=== PATIENT | male | born 1965 | race Caucasian/White ===

== ENCOUNTER 2024-01-22 19:09 | Observation (INO) ==
--- NOTE | 2024-01-22 19:23 | Emergency Department Note ---
Impression & Plan Weakness, Chronic alcohol use, Metabolic acidosis ED Provider Note NAME: MEIR FIGUEROA AGE: 58 SEX: M : 1965 ARRIVES VIA: Ambulance INFORMANT: Patient, EMS ED PROVIDER(S): Manpreet Carreno DO CHIEF COMPLAINT: Weakness HPI: The patient is a 58-year-old male who presented to the emergency department for weakness. The patient states that he has had ongoing and worsening weakness over the course the last 3 to 4 days. The patient denies having any trauma. He denies any headache or chest pain. He does have a history of chronic alcohol use and drinks approximately 12 beers a day. The patient denies having any dark or tarry stools. The patient arrived via ambulance. He was found to be tachycardic by the EMS personnel. ROS: See above HPI for pertinent positives & negatives. A total of 10 systems reviewed and were otherwise negative. PAST MEDICAL HISTORY: See Below PAST SURGICAL HISTORY: See Below FAMILY HISTORY: See Below SOCIAL HISTORY: See Below HOME MEDICATIONS: See Below ALLERGIES: See Below VITALS: See Below PHYSICAL EXAMINATION: GENERAL: Patient is awake alert in no acute distress patient is resting comfortably and showing no signs of anxiety EYES: The conjunctivae are clear. The pupils are round and reactive. EARS, NOSE, MOUTH AND THROAT: The nose is without any evidence of any deformity. NECK: The neck is nontender and supple. RESPIRATORY: Normal respiratory effort is noted there is no evidence of wheezing rhonchi or rales CARDIOVASCULAR: Tachycardic and regular heart sounds were noted to auscultation. There is no definite murmur. GASTROINTESTINAL: The abdomen is soft. Abdomen is nontender. MUSCULOSKELETAL/EXTREMITIES: There is no evidence of gross deformity full range of motion is noted in the hips and shoulders. SKIN: There is no obvious evidence of any rash. There are no petechiae, pallor or cyanosis noted. NEUROLOGIC: Patient is awake alert and oriented x3 strength is symmetric patellar reflexes are diminished bilaterally. MEDICAL DECISION MAKING: The patient is a 58-year-old male who presented to the emergency department for an evaluation of generalized weakness. The patient has a history of alcohol abuse. He was found to have decreased reflexes bilaterally. I do not think this sounds like an ascending paralysis such as Guillain-Ahuja but given the patient's alcohol use it could be related to that. I discussed the patient's laboratory and radiographic studies with him. He was treated with IV thiamine as well as IV antibiotics. I discussed his condition with the on-call [facility] hospitalist. They have agreed to evaluate the patient in the emergency department for further management and disposition. Triage Nursing notes reviewed. Prior medical records reviewed Vital Signs: reviewed and remarkable for no significant abnormalities Differential diagnosis: Infection, dehydration, metabolic abnormality, hypo/hyperglycemia, electrolyte disturbance, anemia, hypoxia, cardiac sources, intracerebral event, toxicologic, neurologic, as well as other pathologies. ER treatment provided: See below Diagnostics interpreted by me: ECG: EKG was obtained in the emergency department. My interpretation is sinus tachycardia at 110 bpm. There is no ectopy. There is no acute ST segment abnormalities noted. No previous tracing was available. Cardiac Monitoring: An order was placed for continuous cardiac monitoring. The monitor shows a rate of 103 bpm with sinus tachycardia. Laboratory studies: As stated above and show below. Imaging studies: See below. Radiographic imaging was reviewed by myself Consultation(s): Dr. Sawant was notified about the patient. He will evaluate the patient in the emergency department. Past Med/Surg History Problem List (Updated 01/22/24 @ 21:29 by Manpreet Carreno DO) Metabolic acidosis (Acute) Chronic alcohol use (Acute) Weakness (Acute) Medical History (Updated 01/22/24 @ 21:29 by Manpreet Carreno DO) Chronic alcohol abuse Social History Smoking Status: Never smoker Tobacco Type: Smokeless Tobacco (Dip or Chew) Preferred Language: Salvadorean Feels Safe at Home: Yes Allergies Allergies Allergy/AdvReac Type Severity Reaction Status Date / Time No Known Allergies Allergy Unverified 01/22/24 22:09 Home Meds Home Medications Medication Instructions Recorded Confirmed No Known Home Medications 01/22/24 01/22/24 Results & Data (ED) Vital Signs Vital Signs - 24 hr 01/22/24 19:04 01/22/24 19:17 01/22/24 19:18 Temperature 36.7 C Temperature Source Oral Pulse Rate 115 H 114 H Pulse Rate [Apical] Pulse Rhythm Regular Pulse Rhythm [Apical] Pulse Strength Normal Respiratory Rate 20 Respiratory Effort / Characteristics Non-Labored Spontaneous Respiratory Depth Normal Respiratory Pattern Regular Blood Pressure 117/87 Blood Pressure [Left Arm] Blood Pressure Mean 97 Blood Pressure Mean [Left Arm] Blood Pressure Position Lying Pulse Oximetry 97 97 Oxygen Delivery Method Room Air Room Air Sepsis Recent Fever Within 48 Hours No Sepsis New/Unexplained Change in Mental Status No Sepsis Action Taken by Nursing No Action Required 01/22/24 19:36 01/22/24 20:04 01/22/24 21:00 Temperature Temperature Source Pulse Rate Pulse Rate [Apical] 99 H 93 H Pulse Rhythm Pulse Rhythm [Apical] Pulse Strength Respiratory Rate 16 18 Respiratory Effort / Characteristics Non-Labored Respiratory Depth Normal Respiratory Pattern Regular Blood Pressure Blood Pressure [Left Arm] 99/74 L 102/63 Blood Pressure Mean Blood Pressure Mean [Left Arm] 82 76 Blood Pressure Position Pulse Oximetry 99 98 100 Oxygen Delivery Method Room Air Room Air Room Air Sepsis Recent Fever Within 48 Hours Sepsis New/Unexplained Change in Mental Status Sepsis Action Taken by Nursing 01/22/24 22:00 01/22/24 23:00 01/22/24 23:21 Temperature Temperature Source Pulse Rate 93 H Pulse Rate [Apical] 99 H 98 H Pulse Rhythm Pulse Rhythm [Apical] Regular Pulse Strength Respiratory Rate 18 20 Respiratory Effort / Characteristics Non-Labored Non-Labored Respiratory Depth Normal Respiratory Pattern Regular Regular Blood Pressure Blood Pressure [Left Arm] 139/89 100/75 Blood Pressure Mean Blood Pressure Mean [Left Arm] 105 83 Blood Pressure Position Pulse Oximetry 95 99 Oxygen Delivery Method Room Air Room Air Sepsis Recent Fever Within 48 Hours Sepsis New/Unexplained Change in Mental Status Sepsis Action Taken by Nursing 01/23/24 00:00 Temperature Temperature Source Pulse Rate Pulse Rate [Apical] 103 H Pulse Rhythm Pulse Rhythm [Apical] Regular Pulse Strength Respiratory Rate 18 Respiratory Effort / Characteristics Non-Labored Respiratory Depth Normal Respiratory Pattern Regular Blood Pressure Blood Pressure [Left Arm] 100/62 Blood Pressure Mean Blood Pressure Mean [Left Arm] 74 Blood Pressure Position Pulse Oximetry 100 Oxygen Delivery Method Room Air Sepsis Recent Fever Within 48 Hours Sepsis New/Unexplained Change in Mental Status Sepsis Action Taken by Skilled Nursing Medications Current Medication List: was personally reviewed by me Laboratory Data Attestation: I reviewed the patient's lab results. 01/22/24 19:19 01/22/24 19:19 Lab Results 01/22/24 01/22/24 01/22/24 Range/Units 19:19 19:31 21:08 WBC 14.20 H (4.8-10.8) K/ul RBC 4.78 (4.70-6.10) M/uL Hgb 15.1 (14.0-18.0) g/dl Hct 43.3 (42.0-52.0) % MCV 90.6 (80.0-100.0) fL MCH 31.6 (25.0-34.0) pg MCHC 34.9 (32.0-36.0) g/dL RDW Std Deviation 46.0 (36.4-46.3) fL RDW Coeff of Don 13.9 (11.5-14.5) % Plt Count 245 (130-400) K/uL MPV 11.8 (9.4-12.4) fL Immature Gran % (Auto) 0.6 % Neut % (Auto) 81.7 % Lymph % (Auto) 11.7 % Forrest % (Auto) 5.6 % Eos % (Auto) 0.3 % Baso % (Auto) 0.1 % Neut # (Auto) 11.60 H (1.40-6.50) K/uL Lymph # (Auto) 1.66 (1.20-3.40) K/uL Forrest # (Auto) 0.79 H (0.11-0.59) K/uL Eos # (Auto) 0.04 (0.00-0.50) K/uL Baso # (Auto) 0.02 (0.00-0.20) K/uL Immature Gran # (Auto) 0.09 (0.01-0.20) K/uL Absolute Nucleated RBC 0.04 (0.00-0.12) K/uL Nucleated RBC % (auto) 0.3 % PT 14.5 H (9.0-12.0) Seconds INR 1.4 H (0.9-1.1) APTT 27 (21-31) Seconds PTT Ratio 1.0 VBG pH 7.41 (7.36-7.41) VBG pCO2 34 L (38-50) mmHg VBG pO2 21 mmHg VBG HCO3 22 mmol/L VBG O2 Saturation < 60.0 % VBG Base Excess -2.4 mEq/L Sodium 130 L (136-145) mmol/L Potassium 3.4 L (3.5-5.1) mmol/L Chloride 94 L (98-107) mmol/L Carbon Dioxide 16 L (21-32) mmol/L Anion Gap 20 H (3-11) BUN 9 (6-23) mg/dl Creatinine 0.77 (0.6-1.4) mg/dl Est Cr Clr Drug Dosing 114.1 ml/min eGFR 105.07 BUN/Creatinine Ratio 11.7 (10-20) Glucose 154 H (70-99(Fasting)) mg/dl Osmolality 270 L (280-300) mOsm/kg Calcium 8.7 (8.6-10.3) mg/dl Magnesium 2.1 (1.7-2.4) mg/dl Total Bilirubin 1.9 H (0.2-1.0) mg/dl AST 60 H (13-39) U/L ALT 38 (7-52) U/L Alkaline Phosphatase 61 (34-104) U/L Total Creatine Kinase 33 (30-223) U/L Troponin I High Sens 9.2 (0-20) pg/ml C-Reactive Protein 5.03 H (0-0.5) mg/dl Total Protein 7.4 (6.0-8.3) gm/dl Albumin 3.6 (3.4-5.0) gm/dl Globulin 3.8 (2.5-4.0) gm/dl Albumin/Globulin Ratio 0.9 (0.9-2) Vitamin B12 (180-914) pg/ml Folate (>5.38) ng/ml Procalcitonin 0.50 (0-0.5) ng/ml TSH 4.174 (0.300-4.500) uIu/ml Urine Color Urine Appearance (Clear) Urine pH (4.5-7.5) Ur Specific Clayton (1.000-1.030) Urine Protein (Negative) Urine Glucose (UA) (Negative) Urine Ketones (Negative) Urine Blood (Negative) Urine Nitrite (Negative) Urine Bilirubin (Negative) Urine Urobilinogen (Negative) Ur Leukocyte Esterase (Negative) Urine WBC (Auto) (0-5) /hpf Urine RBC (Auto) (0-2) /hpf U Hyaline Cast (Auto) (0-2) /lpf U Epithel Cells (Auto) (0-2) /hpf Urine Bacteria (Auto) (None Seen) Hyaline Casts (None Presnt) /lpf Urine Osmolality (500-800) mOsm/kg Ur Random Sodium mmol/L Urine Opiates Screen (Neg) Ur Methadone, Qual (Neg) Urine Fentanyl Screen (Neg) Urine Barbiturates (Neg) Ur Phencyclidine (PCP) (Neg) U Amphetamin/Meth Scrn (Neg) MDMA (Ecstasy) Screen (Neg) U Benzodiazepines Scrn (Neg) Ur Cocaine Metabolite (Neg) U Marijuana (THC) Screen (Neg) Ethyl Alcohol mg/dL < 10.0 (<10.0) mg/dl Anaplasma Smear See Comment Babesia Smear See Comment Lyme Disease Screen (Negative) SARS-CoV-2 (PCR) NEGATIVE (Negative) Influenza Type A (PCR) Negative (Neg) Influenza Type B (PCR) Negative (Neg) RSV (RT-PCR) Negative (Neg) 01/22/24 01/22/24 Range/Units 22:23 23:24 WBC (4.8-10.8) K/ul RBC (4.70-6.10) M/uL Hgb (14.0-18.0) g/dl Hct (42.0-52.0) % MCV (80.0-100.0) fL MCH (25.0-34.0) pg MCHC (32.0-36.0) g/dL RDW Std Deviation (36.4-46.3) fL RDW Coeff of Don (11.5-14.5) % Plt Count (130-400) K/uL MPV (9.4-12.4) fL Immature Gran % (Auto) % Neut % (Auto) % Lymph % (Auto) % Forrest % (Auto) % Eos % (Auto) % Baso % (Auto) % Neut # (Auto) (1.40-6.50) K/uL Lymph # (Auto) (1.20-3.40) K/uL Forrest # (Auto) (0.11-0.59) K/uL Eos # (Auto) (0.00-0.50) K/uL Baso # (Auto) (0.00-0.20) K/uL Immature Gran # (Auto) (0.01-0.20) K/uL Absolute Nucleated RBC (0.00-0.12) K/uL Nucleated RBC % (auto) % PT (9.0-12.0) Seconds INR (0.9-1.1) APTT (21-31) Seconds PTT Ratio VBG pH (7.36-7.41) VBG pCO2 (38-50) mmHg VBG pO2 mmHg VBG HCO3 mmol/L VBG O2 Saturation % VBG Base Excess mEq/L Sodium (136-145) mmol/L Potassium (3.5-5.1) mmol/L Chloride (98-107) mmol/L Carbon Dioxide (21-32) mmol/L Anion Gap (3-11) BUN (6-23) mg/dl Creatinine (0.6-1.4) mg/dl Est Cr Clr Drug Dosing ml/min eGFR BUN/Creatinine Ratio (10-20) Glucose (70-99(Fasting)) mg/dl Osmolality (280-300) mOsm/kg Calcium (8.6-10.3) mg/dl Magnesium (1.7-2.4) mg/dl Total Bilirubin (0.2-1.0) mg/dl AST (13-39) U/L ALT (7-52) U/L Alkaline Phosphatase (34-104) U/L Total Creatine Kinase (30-223) U/L Troponin I High Sens (0-20) pg/ml C-Reactive Protein (0-0.5) mg/dl Total Protein (6.0-8.3) gm/dl Albumin (3.4-5.0) gm/dl Globulin (2.5-4.0) gm/dl Albumin/Globulin Ratio (0.9-2) Vitamin B12 1184 H (180-914) pg/ml Folate 4.92 L (>5.38) ng/ml Procalcitonin (0-0.5) ng/ml TSH (0.300-4.500) uIu/ml Urine Color Clinch Urine Appearance Clear (Clear) Urine pH 6.0 (4.5-7.5) Ur Specific Clayton 1.018 (1.000-1.030) Urine Protein Trace H (Negative) Urine Glucose (UA) Negative (Negative) Urine Ketones 1+ H (Negative) Urine Blood Negative (Negative) Urine Nitrite Positive A (Negative) Urine Bilirubin 1+ H (Negative) Urine Urobilinogen Positive H (Negative) Ur Leukocyte Esterase Trace H (Negative) Urine WBC (Auto) 0-5 (0-5) /hpf Urine RBC (Auto) 3-5 H (0-2) /hpf U Hyaline Cast (Auto) 6-10 H (0-2) /lpf U Epithel Cells (Auto) 0-2 (0-2) /hpf Urine Bacteria (Auto) None Seen (None Seen) Hyaline Casts Present A (None Presnt) /lpf Urine Osmolality 473 L (500-800) mOsm/kg Ur Random Sodium 22 mmol/L Urine Opiates Screen Neg (Neg) Ur Methadone, Qual Neg (Neg) Urine Fentanyl Screen Neg (Neg) Urine Barbiturates Neg (Neg) Ur Phencyclidine (PCP) Neg (Neg) U Amphetamin/Meth Scrn Neg (Neg) MDMA (Ecstasy) Screen Neg (Neg) U Benzodiazepines Scrn Neg (Neg) Ur Cocaine Metabolite Neg (Neg) U Marijuana (THC) Screen Pos H (Neg) Ethyl Alcohol mg/dL (<10.0) mg/dl Anaplasma Smear Babesia Smear Lyme Disease Screen Negative (Negative) SARS-CoV-2 (PCR) (Negative) Influenza Type A (PCR) (Neg) Influenza Type B (PCR) (Neg) RSV (RT-PCR) (Neg) Administered Medications Potassium Chloride/Sodium Chloride (Normal Saline W/20 Meq Kcl) 20 meq in 1,000 mls @ 100 mls/hr IV .Q10H CHRISTA Stop: 01/23/24 08:59 Last Admin: 01/22/24 23:33 Dose: 100 mls/hr Documented By: DIMITRI Discontinued Medications Sodium Chloride (Nss) 1,000 mls @ 999 mls/hr IV .Q1H1M ONE Stop: 01/22/24 20:18 Last Infusion: 01/22/24 20:54 Dose: Infused Documented By: Admin: 01/22/24 19:24 Dose: 999 mls/hr Documented By: DIMITRI Thiamine HCl 200 mg/ Sodium (Chloride) 52 mls @ 210 mls/hr IV NOW STA Stop: 01/22/24 19:32 Last Infusion: 01/22/24 20:54 Dose: Infused Documented By: Admin: 01/22/24 20:23 Dose: 210 mls/hr Documented By: DIMITRI Ceftriaxone Sodium (Rocephin) 2,000 mg in 50 mls @ 100 mls/hr IV NOW STA Stop: 01/22/24 21:19 Last Infusion: 01/22/24 21:28 Dose: Infused Documented By: Admin: 01/22/24 20:58 Dose: 100 mls/hr Documented By: DIMITRI Imaging Data Attestation: I personally reviewed and interpreted this imaging study as follows: My Impression: 1 view chest x-ray was obtained in the emergency department. My interpretation is possible left-sided infiltrate, no free air, final report below. CT the brain was obtained in the emergency department. My interpretation is no intracranial hemorrhage or mass effect, final report below. Radiologist's Impression: Chest X-Ray 01/22/24 19:17 Exam(s): XR CXR 1 VIEW EXAM: XR Chest, 1 View CLINICAL HISTORY: weakness. TECHNIQUE: Frontal view of the chest. COMPARISON: No relevant prior studies available. FINDINGS: Lungs: No infiltrate. No atelectasis. No CHF. Pleural space: No pleural effusion. No pneumothorax. Heart: Unremarkable. No cardiomegaly. Mediastinum: Unremarkable. Normal mediastinal contour. Bones/joints: Unremarkable. No acute fracture. Abdomen: Left upper quadrant surgical clips. IMPRESSION: No acute abnormality. Electronically signed by: Chintan Parra M.D. 01/22/24 23:[address] 01/22/24 19:18 Exam(s): CT HEAD Without Contrast EXAM: CT Head Without Intravenous Contrast CLINICAL HISTORY: Reason for exam: weakness. TECHNIQUE: Axial computed tomography images of the head/brain without intravenous contrast. CTDI is 38.49 mGy and DLP is 625.8 mGy-cm. Automated exposure control was utilized for the study. A dose lowering technique was utilized adhering to the principles of ALARA. COMPARISON: No relevant prior studies available. FINDINGS: Brain: Unremarkable. No hemorrhage. No significant white matter disease. No edema. Ventricles: Moderate ventriculomegaly. Bones/joints: Unremarkable. No acute fracture. Soft tissues: Unremarkable. Sinuses: Unremarkable as visualized. No acute sinusitis. Mastoid air cells: Unremarkable as visualized. No mastoid effusion. IMPRESSION: No evidence of acute intracranial pathology. Electronically signed by: Sindhu Harris MD 01/22/24 22:28 PM Discharge Plan Visit Data Chief Complaint: Weakness Stated Complaint: LEG WEAKNESS, UNABLE TO WALK ED Provider: Manpreet Carreno Discharge Problem: Weakness, Chronic alcohol use, Metabolic acidosis Patient Disposition: Being Evaluated by Hospitalist Forms Stand Alone Forms: My [facility] Prescriptions Prescriptions: No Action No Known Home Medications Referrals Referrals: PCP,NO [Primary Care Provider] -
[2024-01-22] MEDS: SODIUM CHLORIDE 0.9% 1,000 ML IV ONE (19:24)
[2024-01-22 19:51] LABS: Basophils # (auto) 0.02 K/uL (0.00-0.20); Basophils % (auto) 0.1 %; Eosinophils # (auto) 0.04 K/uL (0.00-0.50); Eosinophils % (auto) 0.3 %; Hematocrit (blood only) 43.3 % (42.0-52.0); Hemoglobin 15.1 g/dl (14.0-18.0); Immature Granulocytes # (auto) 0.09 K/uL (0.01-0.20); Immature Granulocytes % (auto) 0.6 %; Lymphocytes # (auto) 1.66 K/uL (1.20-3.40); Lymphocytes % (auto) 11.7 %; Mean Corpuscular Hemoglobin 31.6 pg (25.0-34.0); Mean Corpuscular Hgb Conc 34.9 g/dL (32.0-36.0); Mean Corpuscular Volume 90.6 fL (80.0-100.0); Mean Platelet Volume 11.8 fL (9.4-12.4); Monocytes # (auto) 0.79 K/uL (0.11-0.59); Monocytes % (auto) 5.6 %; Neutrophils % (auto) 81.7 %; Nucleated RBC # (auto) 0.04 K/uL (0.00-0.12); Nucleated RBC % (auto) 0.3 %; Platelet Count 245 K/uL (130-400); RDW Coefficient of Variation 13.9 % (11.5-14.5); Red Blood Count 4.78 M/uL (4.70-6.10)
[2024-01-22 20:06] LABS: Troponin I High Sensitivity 9.2 pg/ml (0-20)
[2024-01-22 20:07] LABS: Albumin Level 3.6 gm/dl (3.4-5.0); Bilirubin,Total 1.9 mg/dl (0.2-1.0); Calcium 8.7 mg/dl (8.6-10.3); Magnesium 2.1 mg/dl (1.7-2.4); Potassium 3.4 mmol/L (3.5-5.1)
[2024-01-22 20:12] LABS: Albumin Globulin Ratio 0.9 (0.9-2); BUN Creatinine Ratio 11.7 (10-20); Creatinine Clr Calc Pharmacy 114.1 ml/min; Globulin 3.8 gm/dl (2.5-4.0); INR 1.4 (0.9-1.1); Partial Thromboplastin Time 27 Seconds (21-31); Prothrombin Time 14.5 Seconds (9.0-12.0); Total Protein 7.4 gm/dl (6.0-8.3)
[2024-01-22 20:15] LABS: Thyroid Stimulating Hormone 4.174 uIu/ml (0.300-4.500)
[2024-01-22] MEDS: THIAMINE HCL 200 MG in SODIUM CHLORIDE 0.9% 50 ML IV STA (20:23)
[2024-01-22] MEDS: cefTRIAXone SODIUM 2,000 MG/50 ML BAG IV STA (20:58)
[2024-01-22 21:11] LABS: Influenza A virus by PCR Negative (Neg); Influenza B virus by PCR Negative (Neg); RSV by PCR Negative (Neg); SARS CoV2 RNA(COVID-19) Ceph NEGATIVE (Negative)
[2024-01-22 21:20] LABS: Base Excess VBG -2.4 mEq/L; HCO3 VBG 22 mmol/L; Oxygen Saturation VBG < 60.0 %; PCO2 VBG 34 mmHg (38-50); PO2 VBG 21 mmHg; pH VBG 7.41 (7.36-7.41)
--- NOTE | 2024-01-22 22:29 | CT Scan Report ---
Exam(s): CT HEAD Without Contrast EXAM: CT Head Without Intravenous Contrast CLINICAL HISTORY: Reason for exam: weakness. TECHNIQUE: Axial computed tomography images of the head/brain without intravenous contrast. CTDI is 38.49 mGy and DLP is 625.8 mGy-cm. Automated exposure control was utilized for the study. A dose lowering technique was utilized adhering to the principles of ALARA. COMPARISON: No relevant prior studies available. FINDINGS: Brain: Unremarkable. No hemorrhage. No significant white matter disease. No edema. Ventricles: Moderate ventriculomegaly. Bones/joints: Unremarkable. No acute fracture. Soft tissues: Unremarkable. Sinuses: Unremarkable as visualized. No acute sinusitis. Mastoid air cells: Unremarkable as visualized. No mastoid effusion. IMPRESSION: No evidence of acute intracranial pathology. Electronically signed by: Sindhu Harris MD 01/22/24 22:28 PM
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
[2024-01-22 22:56] LABS: Appearance Urine Clear (Clear); Bacteria Urine Automated None Seen (None Seen); Bilirubin Urine 1+ (Negative); Blood Urine Negative (Negative); Color Urine Orange; Epithelial Cell Urine Auto 0-2 /hpf (0-2); Glucose Urine UA Negative (Negative); Hyaline Casts Urine Present /lpf (None Presnt); Ketones Urine 1+ (Negative); Leukocyte Esterase Urine Trace (Negative); Nitrite Urine Positive (Negative); Protein Urine Trace (Negative); Specific Gravity Urine 1.018 (1.000-1.030); Urobilinogen Urine Positive (Negative); WBC Urine Automated 0-5 /hpf (0-5)
[2024-01-22] MEDS: NSS + 20MEQ KCL 20 MEQ/1,000 ML BAG IV SCH (23:33)
[2024-01-22 23:44] LABS: Amphetamines+Metham, Urine Neg (Neg); Barbiturates, Urine Neg (Neg); Benzodiazepine, Urine Neg (Neg); Cocaine, Urine Neg (Neg); Fentanyl, Urine Neg (Neg); MDMA (Ecstacy), Urine Neg (Neg); Marijuana, Urine Pos (Neg); Methadone, Urine Neg (Neg); Opiate, Urine Neg (Neg); Phencyclidine, Urine Neg (Neg)
--- NOTE | 2024-01-22 23:47 | XRay Report ---
Exam(s): XR CXR 1 VIEW EXAM: XR Chest, 1 View CLINICAL HISTORY: weakness. TECHNIQUE: Frontal view of the chest. COMPARISON: No relevant prior studies available. FINDINGS: Lungs: No infiltrate. No atelectasis. No CHF. Pleural space: No pleural effusion. No pneumothorax. Heart: Unremarkable. No cardiomegaly. Mediastinum: Unremarkable. Normal mediastinal contour. Bones/joints: Unremarkable. No acute fracture. Abdomen: Left upper quadrant surgical clips. IMPRESSION: No acute abnormality. Electronically signed by: Chintan Parra M.D. 01/22/24 23:46 PM
[2024-01-23 00:26] LABS: Folate (Folic Acid),Ser orPlas 4.92 ng/ml (>5.38)
[2024-01-23] MEDS ORDERED: GLUCOSE 10 TAB/TUBE PO PRN (01:22)
[2024-01-23] MEDS ORDERED: CARBOHYDRATES FOR HYPOGLYCEMIA PO PRN (01:22)
[2024-01-23] MEDS ORDERED: GLUCOSE 40% GEL 15 GM TUBE PO PRN (01:22)
[2024-01-23] MEDS ORDERED: ONDANSETRON INJ 2 MG/ML 2 ML VIAL IV PRN (01:22)
[2024-01-23] MEDS ORDERED: LORazepam 2 MG/1 ML VIAL IV PRN ×3 (01:22)
[2024-01-23] MEDS ORDERED: DEXTROSE 50% 50 ML SYRINGE IV PRN (01:22)
[2024-01-23] MEDS ORDERED: Ativan IV Alcohol Withdrawal--Active Protocol IV PRN (01:22)
[2024-01-23] MEDS ORDERED: GLUCAGON FOR INJ 1 MG VIAL SQ PRN (01:22)
--- NOTE | 2024-01-23 02:57 | XRay Report ---
EXAM: XR KUB pre MRI CLINICAL HISTORY: INPATIENT TECHNIQUE: X-ray images of the abdomen were obtained in supine positions (KUB). COMPARISON: No prior studies are available for comparison. FINDINGS: Metallic clips and densities are projecting over the left hypochondrium could represent prior intervention, is correlated with a history. Oval radio-opaque density measures about 1.5x 1 cm in diameter seen projecting over the region of gall bladder suggesting gall bladder stone for ultrasound correlation. Gas Pattern: Gas pattern within the abdomen is normal. No evidence of bowel obstruction or distention. Soft Tissues: Soft tissues of the abdomen appear normal without evidence of masses or calcifications. The liver, spleen, and kidneys are of normal size and position. Mild degenerative changes involving the spine with possible facet joint arthropathy IMPRESSION: Oval Radiopaque density is seen protecting over the shadow of the gall bladder for better assessment with ultrasound. Electronically signed by Cheri Ktahleen 01-23-2024 02:57 AM
[2024-01-23 06:42] LABS: Basophils # (auto) 0.04 K/uL (0.00-0.20); Basophils % (auto) 0.4 %; Eosinophils # (auto) 0.02 K/uL (0.00-0.50); Eosinophils % (auto) 0.2 %; Hematocrit (blood only) 35.2 % (42.0-52.0); Hemoglobin 12.5 g/dl (14.0-18.0); Immature Granulocytes # (auto) 0.07 K/uL (0.01-0.20); Immature Granulocytes % (auto) 0.6 %; Lymphocytes # (auto) 2.94 K/uL (1.20-3.40); Lymphocytes % (auto) 26.6 %; Mean Corpuscular Hemoglobin 31.6 pg (25.0-34.0); Mean Corpuscular Hgb Conc 35.5 g/dL (32.0-36.0); Mean Corpuscular Volume 89.1 fL (80.0-100.0); Mean Platelet Volume 11.6 fL (9.4-12.4); Monocytes # (auto) 0.98 K/uL (0.11-0.59); Monocytes % (auto) 8.9 %; Neutrophils % (auto) 63.3 %; Nucleated RBC # (auto) 0.02 K/uL (0.00-0.12); Nucleated RBC % (auto) 0.2 %; Platelet Count 207 K/uL (130-400); RDW Standard Deviation 45.8 fL (36.4-46.3); Red Blood Count 3.95 M/uL (4.70-6.10); White Blood Count 11.05 K/ul (4.8-10.8)
[2024-01-23 07:15] LABS: Albumin Globulin Ratio 0.9 (0.9-2); BUN Creatinine Ratio 16.4 (10-20); Bilirubin,Total 1.2 mg/dl (0.2-1.0); Calcium 8.3 mg/dl (8.6-10.3); Creatinine Clr Calc Pharmacy 131.1 ml/min; Globulin 3.3 gm/dl (2.5-4.0); Potassium 3.3 mmol/L (3.5-5.1); Total Protein 6.3 gm/dl (6.0-8.3)
[2024-01-23 07:43] LABS: Estimated Average Glucose 117 mg/dl; Hemoglobin A1C 5.7 % (4.5-5.6)
[2024-01-23] MEDS ORDERED: POTASSIUM CHLORIDE / WTR 10 MEQ/100 ML PLCT IV ONE (07:43)
[2024-01-23] MEDS: INSULIN ASPART PER UNIT CHARGE SC SCH (08:50)
[2024-01-23] MEDS: POTASSIUM CHLORIDE 10 MEQ TABCR PO ONE (09:00)
[2024-01-23] MEDS: HEPARIN SOD 5,000 UNIT/0.5 ML VIAL SQ SCH (09:01)
[2024-01-23] MEDS: FOLIC ACID 1 MG TAB PO SCH (09:01)
[2024-01-23] MEDS: THIAMINE HCL 100 MG TAB PO SCH (09:01)
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
--- NOTE | 2024-01-23 10:37 | Hospitalist Progress Note ---
Date of Service January 23, 2024 Assessment & Plan (1) Weakness of both lower extremities: Plan: Neurology consult appreciated con't treatment of possible underlying metabolic abnormalities prior to considering GB and getting lumbar puncture -Tickborne studies: Negative for Lyme disease, anaplasmosis and babesiosis -IVF, electrolyte repletion -folic acid, thiamine -PT/OT evaluation (2) Abnormal liver enzymes: (3) Chronic alcohol abuse: Plan: Alcohol level is less than 10, with patient reporting drinking [address] on AWSS protocol with IV Ativan Received thiamine 200 mg IV and folate 1 mg IV in the ED Place on thiamine 100 mg p.o. daily and folate 1 mg p.o. daily (4) Diabetes mellitus: Plan: -RISS (5) H/O left nephrectomy: (6) History of splenectomy: (7) Metabolic acidosis: Plan: status post 1 L normal saline bolus from the ED Place on NSS + KCl 20 mEq at 100 mL/h x 1 L Admission and Anticipated Discharge Date Admission Date: January 22, 2024 Subjective No events overnight, pt resting comfortably in bed Review of Systems Review of Systems: CONST: Negative for fever, body aches and chills. HENT: Negative for neck pain/stiffness, headache, congestion, sore throat, swelling. EYES: Negative for discharge/pain or vision changes. RESP: Negative for cough/hemoptysis and shortness of breath. CV: Negative chest pain, difficulty breathing, palpitations. ABD: Negative pain, nausea, vomiting. : Negative increase frequency, dysuria, blood in urine or stool. MUSC: Negative for muscle aches, edema. SKIN: Negative rash, lesions/sores. NEURO: Negative headache, dizziness, weakness. Physical Exam Physical Exam: GENERAL APPEARANCE NAD, activity normal for age, well developed/ well nourished, no cyanosis, pallor, or diaphoresis. EYES lids/conjunctiva normal. EARS/NOSE/THROAT Mucous membranes moist, nares normal, lips/teeth normal uvula midline without oral pharyngeal erythema, exudate or swelling TMs normal bilaterally. No lymphangitis/lymphedema. HEAD/NECK normocephalic atraumatic, no facial trauma, neck is supple. RESPIRATORY respiratory effort normal, speaks in full sentences, no tripod position, no accessory muscle use. Lungs clear to auscultation without rhonchi, wheezes, rales CARDIAC Regular rate and rhythm, no edema. ABDOMINAL Soft, ND/NT. No evidence of fluid wave. No pulsatile masses on exam, rebound tenderness, Rankin sign or pain over Mcburney's point. MUSCLES/EXTREMITIES No abnormal range of motion, no swelling. SKIN Warm, pink and dry. No rashes, dermatoses, petechiae or lesions. NEUROLOGICAL Speech is clear and appropriate. Normal level of consciousness. Gait and coordination are normal. 5/5 strength in all extremities. PSYCH Normal mood and affect. Judgement/competence is appropriate Results & Data Results & Data Vital Signs (Past 12 Hours) Vital Signs Temp Pulse Pulse Resp BP BP Pulse Ox 01/23/24 08:02 36.5 C 78 20 112/73 100 01/23/24 02:51 36.8 C 88 18 113/77 99 01/23/24 01:28 36.7 C 92 H 16 115/75 99 01/23/24 01:00 36.6 C 102 H 18 104/68 95 01/23/24 00:00 103 H 18 100/62 100 01/22/24 23:21 93 H 01/22/24 23:00 98 H 20 100/75 99 O2 Del Method 01/23/24 08:02 Room Air 01/23/24 02:51 Room Air 01/23/24 01:28 Room Air 01/23/24 01:00 Room Air 01/23/24 00:00 Room Air 01/22/24 23:21 01/22/24 23:00 Room Air PG Care Time/CCT Total # of Minutes Spent Total Time Spent with Patient: Total time spent is greater than 50% in coordination of care (as documented) at patient's floor/unit and/or counseling patient: Coding Level of Care Code 47153 SUB INP/OBS CARE 2/35MIN Diagnoses Weakness of both lower extremities R29.898 Abnormal liver enzymes R74.8 Chronic alcohol abuse F10.10 Diabetes mellitus E11.9 H/O left nephrectomy Z90.5 History of splenectomy Z90.81 Metabolic acidosis E87.20
[2024-01-24 06:49] LABS: Basophils # (auto) 0.05 K/uL (0.00-0.20); Basophils % (auto) 0.5 %; Eosinophils # (auto) 0.03 K/uL (0.00-0.50); Eosinophils % (auto) 0.3 %; Hematocrit (blood only) 34.5 % (42.0-52.0); Hemoglobin 12.3 g/dl (14.0-18.0); Immature Granulocytes # (auto) 0.05 K/uL (0.01-0.20); Immature Granulocytes % (auto) 0.5 %; Lymphocytes # (auto) 2.65 K/uL (1.20-3.40); Lymphocytes % (auto) 27.2 %; Mean Corpuscular Hemoglobin 31.9 pg (25.0-34.0); Mean Corpuscular Hgb Conc 35.7 g/dL (32.0-36.0); Mean Corpuscular Volume 89.4 fL (80.0-100.0); Mean Platelet Volume 11.5 fL (9.4-12.4); Monocytes % (auto) 8.2 %; Neutrophils # (auto) 6.17 K/uL (1.40-6.50); Neutrophils % (auto) 63.3 %; Nucleated RBC # (auto) 0.02 K/uL (0.00-0.12); Nucleated RBC % (auto) 0.2 %; Platelet Count 218 K/uL (130-400); RDW Coefficient of Variation 14.1 % (11.5-14.5); RDW Standard Deviation 46.1 fL (36.4-46.3); Red Blood Count 3.86 M/uL (4.70-6.10); White Blood Count 9.75 K/ul (4.8-10.8)
[2024-01-24 07:10] LABS: Albumin Level 2.9 gm/dl (3.4-5.0); Bilirubin,Total 1.2 mg/dl (0.2-1.0); Calcium 8.1 mg/dl (8.6-10.3); Creatinine Clr Calc Pharmacy 127.3 ml/min; Magnesium 1.9 mg/dl (1.7-2.4); Potassium 3.5 mmol/L (3.5-5.1); Total Protein 5.9 gm/dl (6.0-8.3)
--- NOTE | 2024-01-24 09:27 | Neurology Progress Note ---
Date of Service January 24, 2024 Assessment & Plan (1) Weakness of both lower extremities: (2) Tremor: (3) Myalgia: (4) Chronic alcohol abuse: Plan This patient came in with syncope and lower extremity weakness. He was noted to have orthostasis. On neurologic examination currently, he has no focal weakness (individual muscles have excellent strength). The patient denies low back pain, but does have myalgias in proximal muscles particularly the thigh. I cannot exclude an underlying myopathy (a normal CK 33 on 01/21 -does not exclude myopathy) The patient is a heavy alcohol user over long period of time. He does not have any obvious withdrawal symptoms this morning. The patient does have an action tremor which could be due to multiple etiologies. Patient has no resting tremor, stiffness, slowness, or Parkinson gait (therefore no evidence of Parkinson's disease). Overall, his clinical picture is not consistent with an acute inflammatory polyneuropathy (such as Guillain-Ahuja syndrome). Recommendations: 1. Replace folate, as you are doing 2. Continue physical and Occupational Therapy 3. Consider aldolase (for myopathy), ESR and repeat CRP. Also could consider LISA profile 12 4. If the patient continues to have myalgia and weakness and EMG and nerve conduction study of the lower extremities (or 1 arm and 1 leg) could be scheduled as an outpatient. 5. I see no need for additional neurologic testing or treatment changes otherwise. I would consider treatment of the tremor as an outpatient. 6. This patient needs a PCP to follow him. Overall, I spent a total of 50 minutes with this case including review of records, direct evaluation the patient at bedside, report generation, and discussion of the case with patient and RN at bedside, occupational therapist, and Dr. Gambino, including differential diagnosis and treatment options Admission and Anticipated Discharge Date Admission Date: January 22, 2024 Subjective Patient feels that his legs were only weak when he came into the hospital. Prior to coming in the hospital he did not have leg weakness. Nursing suggested the patient has had some fluctuating weakness with his legs and fluctuating walking problems. He is able to move his legs and and walk better today but he has some achy soreness in his anterior thighs bilaterally. There is a little bit of soreness in his proximal arm muscles and calves but not as bad as the thighs. Patient was orthostatic upon admission and had some relatively mild electrolyte abnormalities. The white count was elevated but then improved and he has a mild anemia, very mild decreased sodium, hypocalcemia, and mildly elevated AST and total bili. B12 was normal but folate was decreased. TSH was borderline normal at 4.1. None of these abnormalities should make his legs "weak". A CRP was 5.0, but he has had no fever or signs of urinary tract (or other) infection. Chest x-ray was unremarkable. Results & Data Vital Signs (Past 12 Hours) Vital Signs Temp Pulse Pulse Resp BP Pulse Ox O2 Del Method 01/24/24 08:19 37.1 C 77 18 112/75 100 Room Air 01/24/24 05:42 71 01/24/24 04:00 36.7 C 83 18 113/77 98 Room Air 01/24/24 00:33 36.8 C 82 18 113/73 98 Room Air 01/23/24 21:47 96 H Exam (Neuro) Physical Exam: He is awake and alert. Speech is without aphasia or dysarthria. Mood is reasonable and affect is appropriate. He is pleasant and cooperative. Extraocular eye muscles are intact without nystagmus. Pupils are 4 mm bilaterally reactive to light. There is no facial droop and tongue is midline. There is good neck, sternocleidomastoid, and trapezius strength. Coordination is normal in the arms without obvious ataxia but there is action tremor bilaterally. There is good facility in the hands. Motor strength is 5/5 diffusely in the upper extremities both proximally and distally with good tone and no focal atrophy Motor strength is 5/5 diffusely in the lower extremities both proximally distally (there is no actual pathologic weakness). The thighs are tender to palpation anteriorly bilaterally and to a lesser degree the upper arms and calfs. Reflexes are 1/4 in the triceps tendons bilaterally, trace in the biceps bilaterally trace in the quadriceps tendons bilaterally and absent in the brachioradialis and Achilles tendons. Toes are downgoing to plantar stimulation bilaterally. Gait is narrow-based and reasonable in a straight line. He is a little hesitant with turns. Stance with eyes open is good. PG Care Time/CCT Total # of Minutes Spent Total Time Spent with Patient: Total time spent is greater than 50% in coordination of care (as documented) at patient's floor/unit and/or counseling patient: Coding Level of Care Code 56955 SUB INP/OBS CARE 3/50MIN Diagnoses Weakness of both lower extremities R29.898 Tremor R25.1 Myalgia M79.10 Chronic alcohol abuse F10.10 Time Spent (min) 50
--- NOTE | 2024-01-24 11:39 | Hospitalist Progress Note ---
Date of Service January 24, 2024 Assessment & Plan (1) Weakness of both lower extremities: Plan: Neurology consult appreciated -symptoms improving, con't treatment of possible underlying metabolic abnormalities prior to considering GB and getting lumbar puncture -Tickborne studies: Negative for Lyme disease, anaplasmosis and babesiosis -IVF, electrolyte repletion -folic acid, thiamine -PT/OT evaluation -esr, aldolase, CRP ordered (2) Abnormal liver enzymes: (3) Chronic alcohol abuse: Plan: Alcohol level is less than 10, with patient reporting drinking [address] on AWSS protocol with IV Ativan Received thiamine 200 mg IV and folate 1 mg IV in the ED Place on thiamine 100 mg p.o. daily and folate 1 mg p.o. daily (4) Diabetes mellitus: Plan: -RISS (5) H/O left nephrectomy: (6) History of splenectomy: (7) Metabolic acidosis: Plan: status post 1 L normal saline bolus from the ED Place on NSS + KCl 20 mEq at 100 mL/h x 1 L Admission and Anticipated Discharge Date Admission Date: January 22, 2024 Subjective Pt states he has improvement in symptoms this morning and feels his legs are stronger. Review of Systems Review of Systems: CONST: Negative for fever, body aches and chills. HENT: Negative for neck pain/stiffness, headache, congestion, sore throat, swelling. EYES: Negative for discharge/pain or vision changes. RESP: Negative for cough/hemoptysis and shortness of breath. CV: Negative chest pain, difficulty breathing, palpitations. ABD: Negative pain, nausea, vomiting. : Negative increase frequency, dysuria, blood in urine or stool. MUSC: Negative for muscle aches, edema. SKIN: Negative rash, lesions/sores. NEURO: Negative headache, dizziness, weakness. Physical Exam Physical Exam: GENERAL APPEARANCE NAD, activity normal for age, well developed/ well nourished, no cyanosis, pallor, or diaphoresis. EYES lids/conjunctiva normal. EARS/NOSE/THROAT Mucous membranes moist, nares normal, lips/teeth normal uvula midline without oral pharyngeal erythema, exudate or swelling TMs normal bilaterally. No lymphangitis/lymphedema. HEAD/NECK normocephalic atraumatic, no facial trauma, neck is supple. RESPIRATORY respiratory effort normal, speaks in full sentences, no tripod position, no accessory muscle use. Lungs clear to auscultation without rhonchi, wheezes, rales CARDIAC Regular rate and rhythm, no edema. ABDOMINAL Soft, ND/NT. No evidence of fluid wave. No pulsatile masses on exam, rebound tenderness, Rankin sign or pain over Mcburney's point. MUSCLES/EXTREMITIES No abnormal range of motion, no swelling. SKIN Warm, pink and dry. No rashes, dermatoses, petechiae or lesions. NEUROLOGICAL Speech is clear and appropriate. Normal level of consciousness. Gait and coordination are normal. 5/5 strength in all extremities. PSYCH Normal mood and affect. Judgement/competence is appropriate Results & Data Results & Data Vital Signs (Past 12 Hours) Vital Signs Temp Pulse Pulse Resp BP Pulse Ox O2 Del Method 01/24/24 08:19 37.1 C 77 18 112/75 100 Room Air 01/24/24 05:42 71 01/24/24 04:00 36.7 C 83 18 113/77 98 Room Air 01/24/24 00:33 36.8 C 82 18 113/73 98 Room Air PG Care Time/CCT Total # of Minutes Spent Total Time Spent with Patient: Total time spent is greater than 50% in coordination of care (as documented) at patient's floor/unit and/or counseling patient: Coding Level of Care Code 87728 SUB INP/OBS CARE 2/35MIN Diagnoses Weakness of both lower extremities R29.898 Abnormal liver enzymes R74.8 Chronic alcohol abuse F10.10 Diabetes mellitus E11.9 H/O left nephrectomy Z90.5 History of splenectomy Z90.81 Metabolic acidosis E87.20
[2024-01-24 12:11] LABS: C Reactive Protein 3.21 mg/dl (0-0.5)
[2024-01-25 06:32] LABS: Basophils # (auto) 0.05 K/uL (0.00-0.20); Basophils % (auto) 0.5 %; Eosinophils # (auto) 0.05 K/uL (0.00-0.50); Eosinophils % (auto) 0.5 %; Hematocrit (blood only) 33.8 % (42.0-52.0); Hemoglobin 11.6 g/dl (14.0-18.0); Immature Granulocytes # (auto) 0.06 K/uL (0.01-0.20); Immature Granulocytes % (auto) 0.6 %; Lymphocytes # (auto) 2.86 K/uL (1.20-3.40); Lymphocytes % (auto) 29.8 %; Mean Corpuscular Hemoglobin 31.8 pg (25.0-34.0); Mean Corpuscular Hgb Conc 34.3 g/dL (32.0-36.0); Mean Corpuscular Volume 92.6 fL (80.0-100.0); Mean Platelet Volume 11.6 fL (9.4-12.4); Monocytes # (auto) 0.83 K/uL (0.11-0.59); Monocytes % (auto) 8.7 %; Neutrophils # (auto) 5.74 K/uL (1.40-6.50); Neutrophils % (auto) 59.9 %; Platelet Count 226 K/uL (130-400); RDW Coefficient of Variation 13.2 % (11.5-14.5); RDW Standard Deviation 44.9 fL (36.4-46.3); Red Blood Count 3.65 M/uL (4.70-6.10); White Blood Count 9.59 K/ul (4.8-10.8)
[2024-01-25 06:45] LABS: BUN Creatinine Ratio 13.8 (10-20); Bilirubin,Total 1.2 mg/dl (0.2-1.0); Calcium 8.2 mg/dl (8.6-10.3); Creatinine Clr Calc Pharmacy 135.2 ml/min; Magnesium 1.7 mg/dl (1.7-2.4); Potassium 3.1 mmol/L (3.5-5.1)
[2024-01-25] MEDS ORDERED: POTASSIUM CHLORIDE / WTR 10 MEQ/100 ML PLCT IV SCH (08:15)
[2024-01-25] MEDS: POTASSIUM CHLORIDE 10 MEQ TABCR PO ONE (08:42)
--- NOTE | 2024-01-25 11:56 | Electrocardiogram Report ---
Test Reason : Blood Pressure : */* mmHG Vent. Rate : 110 BPM Atrial Rate : 110 BPM P-R Int : 146 ms QRS Dur : 76 ms QT Int : 342 ms P-R-T Axes : 12 -9 63 degrees QTcB Int : 462 ms Sinus tachycardia Low voltage QRS Cannot rule out Inferior infarct , age undetermined Cannot rule out Anterior infarct , age undetermined Abnormal ECG No previous ECGs available Confirmed by Shadi Pagan ([id number]) on 01/25/2024 11:56:13 AM Referred By: Confirmed By: Shadi Pagan
--- NOTE | 2024-01-25 12:14 | Discharge Summary ---
Discharge Summary Date of Service January 25, 2024 Principal Dx & Hospital Course #1 = Principal Diagnosis (1) Weakness of both lower extremities: Neurology consult appreciated -symptoms improving, con't treatment of possible underlying metabolic abnormali ties prior to considering GB and getting lumbar puncture -Tickborne studies: Negative for Lyme disease, anaplasmosis and babesiosis -IVF, electrolyte repletion -folic acid, thiamine -PT/OT evaluation -esr, aldolase, CRP ordered (2) Abnormal liver enzymes: (3) Chronic alcohol abuse: Alcohol level is less than 10, with patient reporting drinking [address] on AWSS protocol with IV Ativan Received thiamine 200 mg IV and folate 1 mg IV in the ED Place on thiamine 100 mg p.o. daily and folate 1 mg p.o. daily (4) Diabetes mellitus: -RISS (5) H/O left nephrectomy: (6) History of splenectomy: (7) Metabolic acidosis: status post 1 L normal saline bolus from the ED Place on NSS + KCl 20 mEq at 100 mL/h x 1 L Admission HPI Per Admitting Provider The patient is a 58-year-old male with a past medical history including chronic alcohol use, alcohol use disorder, diabetes mellitus, chronic marijuana use with last use several weeks ago. He reports drinking at least 12 beers daily, and presents as noted above with lower extremity weakness. Discharge Exam GENERAL APPEARANCE NAD, activity normal for age, well developed/ well nourished, no cyanosis, pallor, or diaphoresis. EYES lids/conjunctiva normal. EARS/NOSE/THROAT Mucous membranes moist, nares normal, lips/teeth normal uvula midline without oral pharyngeal erythema, exudate or swelling TMs normal bilaterally. No lymphangitis/lymphedema. HEAD/NECK normocephalic atraumatic, no facial trauma, neck is supple. RESPIRATORY respiratory effort normal, speaks in full sentences, no tripod position, no accessory muscle use. Lungs clear to auscultation without rhonchi, wheezes, rales CARDIAC Regular rate and rhythm, no edema. ABDOMINAL Soft, ND/NT. No evidence of fluid wave. No pulsatile masses on exam, rebound tenderness, Rankin sign or pain over Mcburney's point. MUSCLES/EXTREMITIES No abnormal range of motion, no swelling. SKIN Warm, pink and dry. No rashes, dermatoses, petechiae or lesions. NEUROLOGICAL Speech is clear and appropriate. Normal level of consciousness. Gait and coordination are normal. 5/5 strength in all extremities. PSYCH Normal mood and affect. Judgement/competence is appropriate Discharge Plan Discharge Items Patient Disposition: Home - Self-Care Reason For Visit: LE WEAKNESS,LETHARGIC, ALCOHOL WITHDRAWAL Discharge Diagnosis: lower extremity weakness, hypokalemia Activity: Resume your previous activity Non-emergency contact: Primary Care Provider Call non-emergency contact if: you have any medication questions and your symptoms worsen Follow-up/Referrals: PCP,NO [Primary Care Provider] - Diet: Regular Addtl Attending Provider Instructions: Follow up with PMD in 1 week. Pending Studies at Discharge: No Stand-Alone Forms: The Beer X-Change, Smoking Cessation Medications and DC Order Prescriptions: New thiamine HCl (vitamin B1) 100 mg Tablet 100 mg PO QAM Qty: 60 0RF folic acid 1 mg Tablet 1 mg PO QAM Qty: 60 0RF Discharge Orders: Discharge Order (Routine); Ordered 01/25/24 Ordered By: Jesus Manuel Gambino Admission Data Admit Date/Time: 01/22/24 22:54 Attending Provider: Jesus Manuel Gambino Admit Provider: Abram Mittal Primary Care Provider: PCP,NO Other Providers: Abram Mittal; Gautam Swan Hospital Stay Data Consultations 01/22/24 21:29 ED Decision to Admit Stat 01/23/24 07:38 Consult Neurology Routine Diagnostic Imagining Performed 01/22/24 19:18 CT head/brain wo con Stat Pending Results Patient Have Any Pending Studies at Discharge: No Discharge Instructions Given to Patient (Per Discharging Provider) Follow up with PMD in 1 week. Total Time Total Time Spent Total Time Spent (In Minutes): 50 Coding Level of Care Code 22111 INP/OBS DISCH >30 MIN Diagnoses Weakness of both lower extremities R29.898 Abnormal liver enzymes R74.8 Chronic alcohol abuse F10.10 Diabetes mellitus E11.9 H/O left nephrectomy Z90.5 History of splenectomy Z90.81 Metabolic acidosis E87.20
[2024-01-25 13:19] VITALS: BP 107/63; PULSE 74; RESP 18; TEMP 98.4; O2SAT 96
[2024-01-26 15:17] LABS: Marijuana Quant, GCMS Urine 220 ng/mL (<5)
[2024-01-27 17:32] LABS: Babesia microti DNA Not Detected (Not Detected)
== END 2024-01-25 14:25 | disposition home or self-care (01) | DRG 948 ==
LOC: ED 19:09 → INTOOBSV 22:54 → SUATTDRO 22:54 → 2S 22:54

== ENCOUNTER 2024-02-03 14:12 | Observation (INO) ==
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
--- NOTE | 2024-02-03 15:03 | XRay Report ---
XR chest 1V portable CLINICAL HISTORY: near syncope COMPARISON STUDY: Chest radiograph January 22, 2024. FINDINGS: No pneumothorax or pleural effusion is present. Left upper quadrant surgical clips are note d. A few additional metallic densities project over the left lower chest/upper abdomen. Cardiac size is normal. There is no consolidation to suggest pneumonia. A 6.3 cm left basilar mass-like density is present. There is an additional hazy left mid lung opacity and a left upper lobe nodular opacity. IMPRESSION: 1. No acute cardiopulmonary findings. 2. 6.3 cm left basilar mass-like density, a hazy left lower lung opacity and a left upper lobe nodule . These are indeterminate and a chest CT is recommended to exclude a neoplastic etiology. ACT 112: Positive. There are findings on this exam that require communication between the performing entity and the patient following Patient Test Result Information Act ([place] Act 112) guidelines. Electronically signed by: Kareem Del Rio M.D. 02/03/2024 3:00 PM
--- NOTE | 2024-02-03 15:03 | CT Scan Report ---
CT OF THE HEAD WITHOUT CONTRAST CLINICAL HISTORY: dizzy COMPARISON STUDY: Head CT January 22, 2024. CT DOSE: 1201.8 mGy.cm TECHNIQUE: Helical axial images of the head were obtained without IV contrast. Automated exposure con trol was utilized for the study. A dose lowering technique was utilized adhering to the principles o f ALARA. FINDINGS: No acute intracranial hemorrhage, midline shift or mass effect is present. The ventricular system is stable. Mild ventricular dilatation is likely due to atrophy. The basal cisterns are patent . No extra-axial collections are present. There are no findings to suggest acute dural sinus thrombos is or acute territorial infarct. IMPRESSION: No acute intracranial findings. No change in appearance of the brain. ACT 112: Negative or not required by law. Electronically signed by: Kareem Del Rio M.D. 02/03/2024 3:02 PM
[2024-02-03 15:04] LABS: Basophils # (auto) 0.04 K/uL (0.00-0.20); Basophils % (auto) 0.4 %; Eosinophils # (auto) 0.09 K/uL (0.00-0.50); Eosinophils % (auto) 0.9 %; Hematocrit (blood only) 30.6 % (42.0-52.0); Hemoglobin 10.5 g/dl (14.0-18.0); Immature Granulocytes # (auto) 0.06 K/uL (0.01-0.20); Immature Granulocytes % (auto) 0.6 %; Lymphocytes # (auto) 2.65 K/uL (1.20-3.40); Lymphocytes % (auto) 25.8 %; Mean Corpuscular Hemoglobin 32.1 pg (25.0-34.0); Mean Corpuscular Hgb Conc 34.3 g/dL (32.0-36.0); Mean Corpuscular Volume 93.6 fL (80.0-100.0); Mean Platelet Volume 10.9 fL (9.4-12.4); Monocytes # (auto) 0.62 K/uL (0.11-0.59); Neutrophils # (auto) 6.81 K/uL (1.40-6.50); Neutrophils % (auto) 66.3 %; Platelet Count 316 K/uL (130-400); RDW Coefficient of Variation 14.6 % (11.5-14.5); Red Blood Count 3.27 M/uL (4.70-6.10); White Blood Count 10.27 K/ul (4.8-10.8)
--- NOTE | 2024-02-03 15:09 | CT Scan Report ---
CT OF THE CERVICAL SPINE WITHOUT CONTRAST CLINICAL HISTORY: Neck pain. COMPARISON STUDY: No previous studies for comparison. TECHNIQUE: Helical axial images of the cervical spine were obtained without IV contrast. Sagittal a nd coronal reconstructions were viewed. Automated exposure control was utilized for the study. A do se lowering technique was utilized adhering to the principles of ALARA. FINDINGS: Alignment of the cervical spine is anatomic. Vertebral body heights are maintained. No acut e cervical spine fracture or subluxation is present. There is no prevertebral edema. Facet joints are intact. Moderate multilevel degenerative changes within the cervical spine are present. The central canal and neural foramen are suboptimally assessed given CT technique. Disc space narrowing and endp late changes are most pronounced at the C6-C7 level. A 2.4 cm lobulated pleural/pulmonary nodule with in the left upper lobe is partially imaged on this exam. This is noted on image 714 of 714. A low-att enuation 2.1 cm nodule inferior to the right thyroid lobe is present. IMPRESSION: 1. No acute cervical spine fracture or subluxation. 2. Moderate multilevel degenerative changes within the cervical spine. 3. Partially imaged 2.4 cm lobulated pleural/pulmonary nodule within the left upper lobe. This is ind eterminate and chest CT is recommended for further evaluation. ACT 112: Negative or not required by law. Electronically signed by: Kareem Del Rio M.D. 02/03/2024 3:06 PM
[2024-02-03 15:21] LABS: Base Excess VBG -2.4 mEq/L; HCO3 VBG 22 mmol/L; Oxygen Saturation VBG < 60.0 %; PCO2 VBG 34 mmHg (38-50); PO2 VBG 29 mmHg; pH VBG 7.41 (7.36-7.41)
[2024-02-03 15:21] LABS: Albumin Globulin Ratio 0.9 (0.9-2); Albumin Level 3.4 gm/dl (3.4-5.0); Creatinine Clr Calc Pharmacy 142.1 ml/min; Magnesium 2.2 mg/dl (1.7-2.4); Potassium 3.7 mmol/L (3.5-5.1); Total Protein 7.4 gm/dl (6.0-8.3)
[2024-02-03] MEDS: SODIUM CHLORIDE 0.9% 1,000 ML IV ONE (15:25)
[2024-02-03 15:26] LABS: Troponin I High Sensitivity 6.3 pg/ml (0-20)
[2024-02-03 15:29] LABS: INR 1.1 (0.9-1.1); Partial Thromboplastin Ratio 0.9; Partial Thromboplastin Time 25 Seconds (21-31); Prothrombin Time 12.2 Seconds (9.0-12.0)
[2024-02-03] MEDS: OPTIRAY 320 100ml IV ONE (15:32)
--- NOTE | 2024-02-03 16:22 | CT Scan Report ---
EXAM: CT Chest With Intravenous Contrast INDICATION: Abnormal chest x-ray. TECHNIQUE: Axial computed tomography images of the chest with intravenous contrast. Sagittal and coronal reformatted images were created and reviewed. This CT exam was performed using one or more of the following dose reduction techniques: automated exposure control, adjustment of the mA and/or kV according to patient size, and/or use of iterative reconstruction technique. CONTRAST: 90 ml of Optiray 320 was administered intravenously. COMPARISON: 01/22/2024 FINDINGS: Limitations: None. Lungs and pleural spaces: Multiple pleural-based soft tissue masses noted in the left hemithorax. Left apical nodule measures easuring 2.0 x 3.7 x 3.3 cm. Multiple confluent nodules posterior left face with a collection measuring up to 7.0 cm transverse by 3.0. No pleural effusion or pneumothorax. Heart: No abnormality noted. Thyroid: No abnormality noted. Bones/joints: Degenerative changes noted throughout the spine. No acute osseous abnormality seen. Soft tissues: Nodular opacity noted in the left lateral chest wall measuring approximately 2.9 x 1.8 cm. Vasculature: No abnormality noted. No thoracic aortic aneurysm. Lymph nodes: There is an enlarged pretracheal lymph node measuring 1.6 cm in short axis dimension. Liver: Normal size and contour. Hypodense typical of steatosis. No mass or ductal dilation. Spleen: Cm AP by 5.2 cm long. Splenectomy. Accessories splenic tissue noted in the left upper quadrant with a nodule measuring up to 2.6 cm and some along the diaphragm. Kidneys and ureters: Left nephrectomy. Visualized portion of the right kidney appears normal. Upper abdomen: There is left diaphragmatic thinning without defined hernia. IMPRESSION: 1. There are multiple pleural-based homogeneous soft tissue densities in the left hemithorax as well as in the splenectomy bed and the adjacent chest wall. Findings most concerning for splenosis. If there is no study to compare, recommend 3-month follow-up as pleural metastases are not completely excluded but thought less likely. 2. Enlarged precarinal lymph node also should be compared to prior or followed up in 3 months. ACT 112: Negative or not required by law. Electronically signed by Xiomara Rahman 02-03-2024 4:21 PM
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
[2024-02-03 21:31] LABS: Appearance Urine Clear (Clear); Bacteria Urine Automated None Seen (None Seen); Bilirubin Urine 1+ (Negative); Blood Urine Trace (Negative); Cast Urine Automated 0-2 /lpf (0-2); Color Urine Dark Yellow; Epithelial Cell Urine Auto 0-2 /hpf (0-2); Glucose Urine UA Negative (Negative); Ketones Urine 1+ (Negative); Leukocyte Esterase Urine Negative (Negative); Nitrite Urine Negative (Negative); Protein Urine Negative (Negative); RBC Urine Automated 0-2 /hpf (0-2); Specific Gravity Urine 1.042 (1.000-1.030); Urobilinogen Urine Positive (Negative); WBC Urine Automated 0-5 /hpf (0-5)
[2024-02-03] MEDS ORDERED: Ativan IV Alcohol Withdrawal--Active Protocol IV PRN (22:36)
[2024-02-03] MEDS ORDERED: LORazepam 2 MG/1 ML VIAL IV PRN ×3 (22:36)
[2024-02-03] MEDS: ENOXAPARIN INJ 40 MG/0.4 ML SYR SQ SCH (23:58)
--- NOTE | 2024-02-04 05:52 | Electrocardiogram Report ---
Test Reason : Blood Pressure : */* mmHG Vent. Rate : 104 BPM Atrial Rate : 104 BPM P-R Int : 162 ms QRS Dur : 76 ms QT Int : 338 ms P-R-T Axes : 59 -6 64 degrees QTcB Int : 444 ms Sinus tachycardia Otherwise normal ECG When compared with ECG of 22-Jan-2024 19:23, No significant change Confirmed by Quang Ponce ([id number]) on 02/04/2024 5:52:14 AM Referred By: Confirmed By: Quang Ponce
[2024-02-04 07:44] LABS: Basophils # (auto) 0.04 K/uL (0.00-0.20); Basophils % (auto) 0.4 %; Eosinophils % (auto) 0.9 %; Hematocrit (blood only) 25.9 % (42.0-52.0); Hemoglobin 8.7 g/dl (14.0-18.0); Immature Granulocytes # (auto) 0.05 K/uL (0.01-0.20); Immature Granulocytes % (auto) 0.5 %; Lymphocytes # (auto) 2.99 K/uL (1.20-3.40); Lymphocytes % (auto) 27.8 %; Mean Corpuscular Hemoglobin 31.5 pg (25.0-34.0); Mean Corpuscular Hgb Conc 33.6 g/dL (32.0-36.0); Mean Corpuscular Volume 93.8 fL (80.0-100.0); Mean Platelet Volume 10.8 fL (9.4-12.4); Monocytes # (auto) 0.62 K/uL (0.11-0.59); Monocytes % (auto) 5.8 %; Neutrophils # (auto) 6.97 K/uL (1.40-6.50); Neutrophils % (auto) 64.6 %; Platelet Count 286 K/uL (130-400); RDW Coefficient of Variation 14.6 % (11.5-14.5); RDW Standard Deviation 49.8 fL (36.4-46.3); Red Blood Count 2.76 M/uL (4.70-6.10); White Blood Count 10.77 K/ul (4.8-10.8)
[2024-02-04 07:55] LABS: BUN Creatinine Ratio 11.1 (10-20); Creatinine Clr Calc Pharmacy 151.1 ml/min
[2024-02-04] MEDS: THIAMINE HCL 100 MG TAB PO SCH (08:54)
[2024-02-04] MEDS: FOLIC ACID 1 MG TAB PO SCH (08:55)
[2024-02-04] MEDS: POTASSIUM CHLORIDE CRTAB 20 MEQ TABCR PO STA (11:03)
[2024-02-04 11:27] LABS: Ferritin 365.5 ng/ml (8-388)
--- NOTE | 2024-02-04 14:17 | Hospitalist Progress Note ---
Date of Service February 04, 2024 Assessment & Plan (1) Weakness: Plan: Reports ongoing weakness and dizziness when standing - feeling like his legs are going to buckle. Recent admission for similar. Head CT : no acute findings Progression/presentation is not consistent with GBS, patient does have robust strength at the bedside although he is with autonomic dysfunction and orthostatic hypotension. 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 Also with enlarged precarinal lymph node. This will require repeat 3-month imaging (3) Diabetes mellitus: Plan: Last A1c 5.7%, consistent with prediabetes. 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 If greater than 180 fasting add basal bolus SSI (4) Chronic alcohol abuse: Plan: Daily alcohol use Placed on at risk protocol with ativan - so far has not required Continue thiamine/folic acid supplementation Plan Disposition: continued inpatient stay, treating orthostatic hypotension DVT prophylaxis: Lovenox Admission and Anticipated Discharge Date Admission Date: February 03, 2024 Supervising Physician Co-Signing Physician Notes Attending Attestation - Chart reviewed, care plan d/w KAMLA Mason. I agree w/ the hernández components of her documentation with the following addition - ANEMIA hemoglobin today 8.7 was 15.1 earlier this month no overt bleeding at minimum recheck CBC am needs additional w/u for cause Allan Stevens MD Subjective Patient seen sitting in bed - reports when he is sitting he feels great, but when he moves/stands/walks he is so dizzy and weak. Had to crawl up his family members drive way last week. Denies vertigo feelings or that the room is spinning worked with therapy this morning orthostatic vital signs are positive drinks 12 beers a day, and has since he was 23, states it used to be more than that no recent changes to diet or medications, overall his appetite is poor Review of Systems Review of Systems: All systems reviewed & are unremarkable except as noted in Subjective Physical Exam Physical Exam: General: NAD, VS as above, sitting up in bed HEENT: MMM Resp: normal respiratory effort, lungs clear to auscultation CV: RRR, no murmur, Abd: normal bowel sounds, non tender, no hepatosplenomegaly Extremities: Moves all extremities, no edema Neuro: A&O x3, Skin: intact, no lesions noted Results & Data Results & Data Vital Signs (Past 12 Hours) Vital Signs Temp Pulse Resp BP Pulse Ox O2 Del Method 02/04/24 07:46 98.1 F 99 H 20 106/73 100 Room Air 02/04/24 02:58 98.2 F 94 H 17 132/85 95 Room Air Laboratory Results CBC and chemistry reviewed PG Care Time/CCT Total # of Minutes Spent Total Time Spent with Patient: Total time spent is greater than 50% in coordination of care (as documented) at patient's floor/unit and/or counseling patient: Coding Level of Care Code 42477 SUB INP/OBS CARE 3/50MIN Diagnoses Weakness R53.1 Lung mass R91.8 Diabetes mellitus E11.9 Chronic alcohol abuse F10.10
[2024-02-04] MEDS: SODIUM CHLORIDE 0.9% 1,000 ML IV ONE (14:30)
[2024-02-05 08:10] LABS: Basophils # (auto) 0.06 K/uL (0.00-0.20); Basophils % (auto) 0.7 %; Eosinophils # (auto) 0.09 K/uL (0.00-0.50); Eosinophils % (auto) 1.1 %; Hematocrit (blood only) 25.2 % (42.0-52.0); Hemoglobin 8.4 g/dl (14.0-18.0); Immature Granulocytes # (auto) 0.04 K/uL (0.01-0.20); Immature Granulocytes % (auto) 0.5 %; Lymphocytes # (auto) 2.53 K/uL (1.20-3.40); Lymphocytes % (auto) 30.4 %; Mean Corpuscular Hemoglobin 32.2 pg (25.0-34.0); Mean Corpuscular Hgb Conc 33.3 g/dL (32.0-36.0); Mean Corpuscular Volume 96.6 fL (80.0-100.0); Mean Platelet Volume 11.1 fL (9.4-12.4); Monocytes # (auto) 0.51 K/uL (0.11-0.59); Monocytes % (auto) 6.1 %; Neutrophils % (auto) 61.2 %; Platelet Count 280 K/uL (130-400); RDW Coefficient of Variation 14.8 % (11.5-14.5); RDW Standard Deviation 51.8 fL (36.4-46.3); Red Blood Count 2.61 M/uL (4.70-6.10); White Blood Count 8.33 K/ul (4.8-10.8)
[2024-02-05 08:27] LABS: BUN Creatinine Ratio 9.5 (10-20); Calcium 7.8 mg/dl (8.6-10.3); Creatinine Clr Calc Pharmacy 151.1 ml/min; Potassium 3.1 mmol/L (3.5-5.1)
[2024-02-05] MEDS: POTASSIUM CHLORIDE CRTAB 20 MEQ TABCR PO STA (09:08)
--- NOTE | 2024-02-05 11:22 | Hospitalist Progress Note ---
Date of Service February 05, 2024 Assessment & Plan (1) Weakness: Plan: Reports ongoing weakness and dizziness when standing - feeling like his legs are going to buckle. Recent admission for similar. Head CT : no acute findings Progression/presentation is not consistent with GBS, patient does have robust strength at the bedside although he is with autonomic dysfunction and orthostatic hypotension. 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 Also with enlarged precarinal lymph node. This will require repeat 3-month imaging (3) Diabetes mellitus: Plan: Last A1c 5.7%, consistent with prediabetes. 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 If greater than 180 fasting add basal bolus SSI (4) Chronic alcohol abuse: Plan: Daily alcohol use Placed on at risk protocol with ativan - so far has not required Continue thiamine/folic acid supplementation (5) Anemia: Plan Disposition: continued inpatient stay, treating orthostatic hypotension DVT prophylaxis: Lovenox Admission and Anticipated Discharge Date Admission Date: February 03, 2024 Supervising Physician Co-Signing Physician Notes Attending Attestation - Chart reviewed, care plan d/w KAMLA Mason. I agree w/ the hernández components of her documentation. Plan cosyntropin stim test tomorrow am due to persistent orthostasis. Anemia - cbc am. Still no evidence of overt GI bleeding, etc. Allan Stevens MD Subjective Patient sleeping upon entering the room. feels fine at rest. appetite reamins the same concentrated urine in urinal at bedside - encouraged PO hydrations, offered powerade and pt declined Review of Systems Review of Systems: All systems reviewed & are unremarkable except as noted in Subjective Physical Exam Physical Exam: General: NAD, VS as above, sitting up in bed Resp: normal respiratory effort, lungs clear to auscultation CV: RRR, no murmur, Abd: normal bowel sounds, non tender, no hepatosplenomegaly Extremities: Moves all extremities, no edema Neuro: A&O x3, Skin: intact, no lesions noted Results & Data Results & Data Vital Signs (Past 12 Hours) Vital Signs Temp Pulse Resp BP Pulse Ox O2 Del Method 02/05/24 09:12 97.9 F 94 H 18 120/80 94 Room Air 02/05/24 07:54 97.7 F 92 H 16 109/68 100 Room Air Laboratory Results CBc and chemistry reviewed PG Care Time/CCT Total # of Minutes Spent Total Time Spent with Patient: Total time spent is greater than 50% in coordination of care (as documented) at patient's floor/unit and/or counseling patient: Coding Level of Care Code 13141 SUB INP/OBS CARE 2/35MIN Diagnoses Weakness R53.1 Lung mass R91.8 Diabetes mellitus E11.9 Chronic alcohol abuse F10.10 Anemia D64.9
[2024-02-05] MEDS: MIDODRINE HCL 2.5 MG TAB PO SCH (11:30)
[2024-02-05] MEDS ORDERED: COSYNTROPIN 250 MCG in SYRINGE 4 ML IV ONE (15:04)
[2024-02-06 07:03] LABS: Basophils # (auto) 0.07 K/uL (0.00-0.20); Basophils % (auto) 0.7 %; Eosinophils # (auto) 0.19 K/uL (0.00-0.50); Hematocrit (blood only) 24.7 % (42.0-52.0); Hemoglobin 8.3 g/dl (14.0-18.0); Immature Granulocytes # (auto) 0.05 K/uL (0.01-0.20); Immature Granulocytes % (auto) 0.5 %; Lymphocytes # (auto) 3.28 K/uL (1.20-3.40); Lymphocytes % (auto) 34.8 %; Mean Corpuscular Hemoglobin 32.3 pg (25.0-34.0); Mean Corpuscular Hgb Conc 33.6 g/dL (32.0-36.0); Mean Corpuscular Volume 96.1 fL (80.0-100.0); Mean Platelet Volume 11.3 fL (9.4-12.4); Monocytes # (auto) 0.66 K/uL (0.11-0.59); Neutrophils # (auto) 5.17 K/uL (1.40-6.50); Platelet Count 279 K/uL (130-400); RDW Coefficient of Variation 15.1 % (11.5-14.5); RDW Standard Deviation 52.2 fL (36.4-46.3); Red Blood Count 2.57 M/uL (4.70-6.10); White Blood Count 9.42 K/ul (4.8-10.8)
[2024-02-06 07:20] LABS: BUN Creatinine Ratio 8.5 (10-20); Calcium 8.1 mg/dl (8.6-10.3); Creatinine Clr Calc Pharmacy 161.3 ml/min; Magnesium 1.8 mg/dl (1.7-2.4); Potassium 3.8 mmol/L (3.5-5.1)
[2024-02-06] MEDS: Cosyntropin 250mcg IVP **Standard-Dose Cortrosyn Stim Test IV ONE (08:11)
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
[2024-02-06] MEDS: SODIUM CHLORIDE 0.9% 1,000 ML IV SCH (18:30)
[2024-02-07 07:58] LABS: Hematocrit (blood only) 25.7 % (42.0-52.0); Hemoglobin 8.4 g/dl (14.0-18.0); Mean Corpuscular Hemoglobin 31.8 pg (25.0-34.0); Mean Corpuscular Hgb Conc 32.7 g/dL (32.0-36.0); Mean Corpuscular Volume 97.3 fL (80.0-100.0); Mean Platelet Volume 10.9 fL (9.4-12.4); Platelet Count 292 K/uL (130-400); RDW Coefficient of Variation 15.4 % (11.5-14.5); RDW Standard Deviation 54.4 fL (36.4-46.3); Red Blood Count 2.64 M/uL (4.70-6.10); Reticulocyte % 6.89 % (0.50-2.00); White Blood Count 10.61 K/ul (4.8-10.8)
[2024-02-07 08:10] LABS: Albumin Level 2.8 gm/dl (3.4-5.0); BUN Creatinine Ratio 10.2 (10-20); Bilirubin Direct 0.4 mg/dl (0-0.2); Bilirubin,Total 1.3 mg/dl (0.2-1.0); Calcium 7.9 mg/dl (8.6-10.3); Creatinine Clr Calc Pharmacy 161.3 ml/min; Magnesium 1.9 mg/dl (1.7-2.4); Potassium 3.5 mmol/L (3.5-5.1)
[2024-02-07] MEDS: SODIUM CHLORIDE 0.9% 500 ML IV ONE (09:36)
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
[2024-02-08 07:30] LABS: Hematocrit (blood only) 25.8 % (42.0-52.0); Hemoglobin 8.5 g/dl (14.0-18.0); Mean Corpuscular Hgb Conc 32.9 g/dL (32.0-36.0); Mean Platelet Volume 10.3 fL (9.4-12.4); Platelet Count 298 K/uL (130-400); RDW Coefficient of Variation 15.7 % (11.5-14.5); RDW Standard Deviation 54.3 fL (36.4-46.3); Red Blood Count 2.66 M/uL (4.70-6.10); White Blood Count 9.59 K/ul (4.8-10.8)
[2024-02-08 07:48] LABS: Albumin Level 2.7 gm/dl (3.4-5.0); BUN Creatinine Ratio 11.1 (10-20); Bilirubin Direct 0.3 mg/dl (0-0.2); Bilirubin,Total 1.1 mg/dl (0.2-1.0); Calcium 7.9 mg/dl (8.6-10.3); Creatinine Clr Calc Pharmacy 176.3 ml/min; Magnesium 1.8 mg/dl (1.7-2.4); Potassium 3.6 mmol/L (3.5-5.1); Total Protein 5.9 gm/dl (6.0-8.3)
[2024-02-08] MEDS: MIDODRINE HCL 2.5 MG TAB PO SCH (12:42)
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
[2024-02-09 08:41] LABS: Hematocrit (blood only) 25.5 % (42.0-52.0); Hemoglobin 8.4 g/dl (14.0-18.0); Mean Corpuscular Hemoglobin 31.8 pg (25.0-34.0); Mean Corpuscular Hgb Conc 32.9 g/dL (32.0-36.0); Mean Corpuscular Volume 96.6 fL (80.0-100.0); Mean Platelet Volume 10.6 fL (9.4-12.4); Platelet Count 306 K/uL (130-400); RDW Coefficient of Variation 16.1 % (11.5-14.5); RDW Standard Deviation 55.8 fL (36.4-46.3); Red Blood Count 2.64 M/uL (4.70-6.10); White Blood Count 8.86 K/ul (4.8-10.8)
[2024-02-09 08:42] LABS: BUN Creatinine Ratio 8.9 (10-20); Magnesium 1.9 mg/dl (1.7-2.4); Potassium 3.5 mmol/L (3.5-5.1)
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
[2024-02-09 12:21] VITALS: RESP 18
[2024-02-09 15:36] VITALS: PULSE 77; TEMP 97.7
[2024-02-09 17:07] VITALS: BP 93/63; O2SAT 99
[2024-02-11 08:21] LABS: Albumin 3.1 g/dL (3.8-4.8); Alpha 1 Globulin 0.4 g/dL (0.2-0.3); Alpha 2 Globulin 0.6 g/dL (0.5-0.9); Beta-1-Globulin 0.5 g/dL (0.4-0.6); Beta-2-Globulin 0.6 g/dL (0.2-0.5); Gamma Globulin 1.4 g/dL (0.8-1.7); Monoclonal Protein Band 1 DNR g/dL (NONE DETECTED); Monoclonal Protein Band 2 DNR g/dL (NONE DETECTED); Monoclonal Protein Band 3 DNR g/dL (NONE DETECTED); Total Protein 6.5 g/dL (6.1-8.1)
== END 2024-02-09 18:03 | disposition home or self-care (01) | DRG 312 ==
LOC: 3N 14:12 → ED 14:12 → SUATTDRO 20:04 → 3N 21:55 → SUATTDRO 02-05 10:40

== ENCOUNTER 2024-08-20 23:13 | Observation (INO) ==
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
[2024-08-20 23:51] LABS: Basophils # (auto) 0.07 K/uL (0.00-0.20); Basophils % (auto) 0.8 %; Eosinophils % (auto) 1.1 %; Hematocrit (blood only) 37.9 % (42.0-52.0); Immature Granulocytes # (auto) 0.03 K/uL (0.01-0.20); Immature Granulocytes % (auto) 0.3 %; Lymphocytes % (auto) 22.4 %; Mean Corpuscular Hgb Conc 34.3 g/dL (32.0-36.0); Mean Corpuscular Volume 84.6 fL (80.0-100.0); Mean Platelet Volume 12.3 fL (9.4-12.4); Monocytes # (auto) 0.54 K/uL (0.11-0.59); Monocytes % (auto) 6.1 %; Neutrophils # (auto) 6.17 K/uL (1.40-6.50); Neutrophils % (auto) 69.3 %; Platelet Count 267 K/uL (130-400); RDW Coefficient of Variation 14.6 % (11.5-14.5); RDW Standard Deviation 44.9 fL (36.4-46.3); Red Blood Count 4.48 M/uL (4.70-6.10); White Blood Count 8.91 K/ul (4.8-10.8)
[2024-08-21 00:27] LABS: Albumin Globulin Ratio 0.9 (0.9-2); Albumin Level 2.8 gm/dl (3.4-5.0); BUN Creatinine Ratio 9.9 (10-20); Bilirubin,Total 0.4 mg/dl (0.2-1.0); Calcium 8.3 mg/dl (8.6-10.3); Creatinine Clr Calc Pharmacy 47.7 ml/min; Globulin 3.2 gm/dl (2.5-4.0); Magnesium 1.9 mg/dl (1.7-2.4); Potassium 2.4 mmol/L (3.5-5.1); Thyroid Stimulating Hormone 5.736 uIu/ml (0.300-4.500)
[2024-08-21 00:31] LABS: D Dimer 1210 ug/L FEU (0-500)
[2024-08-21 00:32] LABS: Appearance Urine Clear (Clear); Bacteria Urine Automated None Seen (None Seen); Bilirubin Urine Negative (Negative); Blood Urine 3+ (Negative); Color Urine Yellow; Glucose Urine UA Negative (Negative); Ketones Urine Negative (Negative); Leukocyte Esterase Urine Negative (Negative); Nitrite Urine Negative (Negative); Protein Urine 3+ (Negative); RBC Urine Automated >20 /hpf (0-2); Specific Gravity Urine 1.011 (1.000-1.030); Urobilinogen Urine Negative (Negative); WBC Urine Automated 0-5 /hpf (0-5)
[2024-08-21] MEDS: POTASSIUM CHLORIDE / WTR 10 MEQ/100 ML PLCT IV SCH (00:37)
[2024-08-21] MEDS: POTASSIUM CHLORIDE CRTAB 20 MEQ TABCR PO STA (00:37)
[2024-08-21] MEDS: hydrALAZINE HCL 20 MG/ML VIAL IV ONE (00:39)
[2024-08-21] MEDS: SODIUM CHLORIDE 0.9% 1,000 ML IV ONE (00:42)
--- NOTE | 2024-08-21 01:06 | CT Scan Report ---
EXAM: CT head/brain wo con CLINICAL HISTORY: syncope and fall TECHNIQUE: Multiple axial images are obtained from the skull base to the vertex without contrast. CT scan was performed according to ALARA (as low as reasonable achievable). COMPARISON: 02/03/2024 13:39:56 GRAPPLER FINDINGS: There is cerebral atrophy. No evidence of space occupying lesion, hemorrhage, edema, mass effect, midline shift, extra axial collection, or hydrocephalus is noted. Basal cisterns are symmetric and normal in size and configuration. There are scattered periventricular hypodensities as can be seen with chronic microvascular ischemic changes. The samson-white matter differentiation is preserved. Visualized paranasal sinuses and mastoid air cells are well aerated. Orbital contents are within normal limits. Bony structures are intact. IMPRESSION: 1. No evidence of acute intracranial abnormality is demonstrated. 2. Chronic microvascular ischemic changes. 3. Cerebral atrophy. No new changes Advised MRI Brain for further evaluation if clinically indicated. Electronically signed by Deyvi Faust 08-21-2024 01:06 AM
[2024-08-21 01:08] LABS: T4 Free Thyroxine 0.86 ng/dl (0.61-1.60)
[2024-08-21] MEDS: OPTIRAY 320 125ml IV ONE (01:18)
[2024-08-21 01:57] LABS: Troponin I High Sensitivity 43.2 pg/ml (0-20)
--- NOTE | 2024-08-21 02:32 | CT Scan Report ---
EXAM: CT angio chest PE protocol CLINICAL HISTORY: PE TECHNIQUE: Contiguous axial images were obtained from the neck base through the upper abdomen following intravenous administration of iodinated contrast material. Angiographic images were processed, 3D MIP images were acquired for interpretation. If IV contrast material had not been administered, the likelihood of detecting abnormalities relevant to the patient's condition would have been substantially decreased. Coronal and sagittal 3-D MIPs were likewise performed and indicated to increase the sensitivity of detectin diffuse clinically relevant pathology. CT scan was performed according to ALARA (as low as reasonable achievable). COMPARISON: 02/03/2024 14:32:36 CMO & PRESIDENT FINDINGS: Adequate contrast bolus without evidence of pulmonary embolism. The central airways are patent. Multiple well defined soft tissue density subpleural masses are noted in left lower lobe, largest of size 2.3 x 3.5cm along the superior segment of left lower lobe. Few of the masses show thin central and peripheral calcifications. Similar morphology nodules are also noted in the left hypochondrium with post nephrectomy status of left kidney and non-visualization of spleen. Small lymph node of size 18 x 10mm is noted in the anterior cervical level. No pleural effusion. The heart, aorta, and pulmonary arteries are of normal size and configuration. There are no appreciable coronary artery and aortic atherosclerotic calcifications. No pericardial effusion is identified. The thyroid is unremarkable. No mediastinal, hilar, or axillary lymphadenopathy is noted. No suspicious lytic or sclerotic osseous lesions are identified. IMPRESSION: 1. No evidence of pulmonary embolism. 2. Multiple well defined soft tissue density subpleural masses in the left lower lobe, largest of size 2.3 x 3.5cm along the superior segment of left lower lobe. Few of the masses show thin central and peripheral calcifications. Similar morphology nodules are also noted in the left hypochondrium with post nephrectomy status of left kidney and non-visualization of spleen. These findings suggest benign etiology lesions, could represent thoracic splenosis. Suggest- Histopathological correlation. No new finding. Electronically signed by Deyvi Faust 08-21-2024 02:31 AM
--- NOTE | 2024-08-21 02:56 | XRay Report ---
Exam(s): XR CXR 1 VIEW EXAM: XR Chest, 1 View CLINICAL HISTORY: Reason for exam: syncope. TECHNIQUE: Frontal view of the chest. COMPARISON: XR Chest dated 02/03/2024 chest x-ray and CT FINDINGS: Lungs: Stable lobular opacities overlying the left lower lung and left upper paramediastinal region. Pleural space: Unremarkable. No pneumothorax. Heart: Unremarkable. No cardiomegaly. Mediastinum: Unremarkable. Normal mediastinal contour. Bones/joints: Unremarkable. No acute fracture. Upper abdomen: Surgical clips in the left upper quadrant and small metallic densities near the left costophrenic angle, similar to the prior. IMPRESSION: Stable lobular opacities overlying the left lower lung and left upper paramediastinal region. Electronically signed by: Leslie Villarreal M.D. 08/21/24 02:55 AM
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
[2024-08-21] MEDS: MAGNESIUM SULFATE / D5W 1 GM/100 ML BAG IV ONE (04:26)
[2024-08-21] MEDS ORDERED: ALUMINUM/MAGNESIUM SUSP 30 ML UDC PO PRN (05:01)
[2024-08-21] MEDS ORDERED: MAGNESIUM HYDROXIDE SUSP 30 ML UDC PO PRN (05:01)
[2024-08-21] MEDS ORDERED: MELATONIN 3 MG TAB PO PRN (05:01)
[2024-08-21] MEDS ORDERED: ONDANSETRON INJ 2 MG/ML 2 ML VIAL IV PRN (05:01)
[2024-08-21] MEDS ORDERED: POLYETHYLENE (MIRALAX) 17 GM PACK PO PRN (05:01)
[2024-08-21] MEDS: LACTATED RINGER'S 1,000 ML IV SCH (05:13)
--- NOTE | 2024-08-21 06:09 | Ultrasound Report ---
EXAM: US renal/blad retro comp CLINICAL HISTORY: THERON. TECHNIQUE: Ultrasound retroperitoneal performed in grayscale and Doppler imaging. COMPARISON: CT chest done earlier today 08/21/2024, and X-ray abdomen dated 01/22/2024 were reviewed. FINDINGS: The Right Kidney: The right kidney measures 14.0 x 7.3 x 7.3 cm. As per the images, there is possible mild right hydronephrosis with a prominent upper pole calyx. Trace perinephric fluid is noted. A 9 mm cortical cyst is seen in the right kidney. Right renal parenchymal echogenicity appears increased. Cortical thickness: Within normal. Left kidney fossa: The left kidney is surgically absent. Well-defined, rounded, hypoechoic structure in the left upper quadrant measuring 3.3 x 1.7 x 1.9 cm, suggestive of splenosis as seen in CT. Urinary bladder: No wall mass. No stones. The right ureteric jet is seen; the left is not visualized. INCIDENTAL FINDING: Noncompressible, nonperistalsing (1.1 cm in diameter) tubular structure in the right lower quadrant (visualized posterior to the right of the bladder) with 1.6 cm shadowing echogenicity at its end, suspicious for an inflamed appendix with appendicolith. IMPRESSION: 1. Surgically absent left kidney. 2. Well-defined, rounded, hypoechoic structure in the left upper quadrant measuring 3.3 x 1.7 x 1.9 cm. Similar findings are observed in the prior CT. 3. Possible mild right hydronephrosis with prominent upper pole calyces. Similar findings are observed in the prior CT. 4. Right kidney with cortical cyst and increased parenchymal echogenicity. Trace perinephric fluid on the right. Correlate with RFTs. 5. Possible inflamed appendix with appendicolith posterior to the bladder. Clinical correlation and further evaluation by a dedicated abdominal CT study are advised. Electronically signed by Brad Becker 08-21-2024 06:09 AM
[2024-08-21 06:25] LABS: Protein Creatinine Ratio Urine 12.4 (0-0.2); Total Protein Urine Random 385.8 mg/dl (0-11.9)
[2024-08-21] MEDS: POTASSIUM CHLORIDE CRTAB 20 MEQ TABCR PO SCH (09:15)
[2024-08-21] MEDS: THIAMINE HCL 100 MG TAB PO SCH (09:15)
--- NOTE | 2024-08-21 11:34 | Ultrasound Report ---
US carotid doppler BI CLINICAL HISTORY: 59 years-old Male with dizziness. Acute dizziness COMPARISON: None TECHNIQUE: Multiple real time sonographic images of the carotid bifurcations were obtained assessing samson scale, color Doppler and spectral wave form appearance FINDINGS: RIGHT CAROTID: The peak systolic velocity measured within the right ICA is 61 cm/sec. The end diast olic velocity measured 13 cm/sec. The ICA to CCA ratio measured 0.63 which correlates with a stenosi s of 0-50 %. Mild atherosclerosis of the carotid bulb. LEFT CAROTID: The peak systolic velocity measured within the left ICA is 64 cm/sec. The end diastol ic velocity measured 19 cm/sec. The ICA to CCA ratio measured 0.31 which correlates with a stenosis o f 0-50 %. Mild atherosclerosis of the carotid bulb. There is normal antegrade vertebral flow bilaterally. IMPRESSION: 1. Atherosclerosis without hemodynamically significant stenosis. 2. Normal antegrade vertebral flow bilaterally. ACT 112: Negative or not required by law. The above report was generated using voice recognition software. It may contain grammatical, syntax o r spelling errors. Electronically signed by: Ralph Godinez M.D. 08/21/2024 11:32 AM
--- NOTE | 2024-08-21 12:31 | Billing Data ---
Date of Service August 21, 2024 Coding Level of Care Code 32223 INT INP/OBS CARE
--- NOTE | 2024-08-21 13:33 | Electrocardiogram Report ---
Test Reason : Blood Pressure : */* mmHG Vent. Rate : 64 BPM Atrial Rate : 64 BPM P-R Int : 194 ms QRS Dur : 96 ms QT Int : 438 ms P-R-T Axes : -8 -15 -17 degrees QTcB Int : 451 ms Normal sinus rhythm Minimal voltage criteria for LVH, may be normal variant Abnormal ECG When compared with ECG of 03-Feb-2024 14:17, Vent. rate has decreased by 40 bpm Confirmed by Chapin Rajput ([id number]) on 08/21/2024 1:33:11 PM Referred By: REFERRED SELF Confirmed By: Chapin Rajput
--- NOTE | 2024-08-21 13:34 | Electrocardiogram Report ---
Test Reason : Blood Pressure : */* mmHG Vent. Rate : 70 BPM Atrial Rate : 70 BPM P-R Int : 166 ms QRS Dur : 102 ms QT Int : 444 ms P-R-T Axes : -21 -16 -16 degrees QTcB Int : 479 ms Normal sinus rhythm possible Inferior infarct (cited on or before 20-Aug-2024) Abnormal ECG When compared with ECG of 20-Aug-2024 23:18, (unconfirmed) No significant change was found Confirmed by Chapin Rajput ([id number]) on 08/21/2024 1:34:15 PM Referred By: REFERRED SELF Confirmed By: Chapin Rajput
[2024-08-21 13:48] LABS: BUN Creatinine Ratio 10.7 (10-20); Calcium 7.9 mg/dl (8.6-10.3); Creatinine Clr Calc Pharmacy 42.1 ml/min; Potassium 2.9 mmol/L (3.5-5.1)
[2024-08-21] MEDS: hydrALAZINE HCL 20 MG/ML VIAL IV PRN (15:35)
--- NOTE | 2024-08-21 16:10 | XCELERA ---
[id number]
[2024-08-22] MEDS: POTASSIUM CHLORIDE CRTAB 20 MEQ TABCR PO STA (07:48)
[2024-08-22] MEDS: ACETAMINOPHEN 500 MG TAB PO PRN (07:48)
[2024-08-22] MEDS: amLODIPine BESYLATE 5 MG TAB PO SCH (07:48)
[2024-08-22 08:00] VITALS: RESP 18
[2024-08-22 08:14] LABS: Hematocrit (blood only) 37.5 % (42.0-52.0); Hemoglobin 12.7 g/dl (14.0-18.0); Mean Corpuscular Hemoglobin 29.3 pg (25.0-34.0); Mean Corpuscular Hgb Conc 33.9 g/dL (32.0-36.0); Mean Corpuscular Volume 86.4 fL (80.0-100.0); Mean Platelet Volume 12.5 fL (9.4-12.4); Platelet Count 267 K/uL (130-400); RDW Coefficient of Variation 14.8 % (11.5-14.5); RDW Standard Deviation 47.4 fL (36.4-46.3); Red Blood Count 4.34 M/uL (4.70-6.10)
[2024-08-22 08:37] LABS: BUN Creatinine Ratio 11.6 (10-20); Calcium 8.2 mg/dl (8.6-10.3); Creatinine Clr Calc Pharmacy 45.9 ml/min; Potassium 2.9 mmol/L (3.5-5.1)
[2024-08-22 11:48] VITALS: TEMP 98.6; O2SAT 97
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
[2024-08-22 13:10] VITALS: BP 221/118
[2024-08-22 14:33] VITALS: PULSE 78
[2024-08-25 11:02] LABS: Albumin 2.3 g/dL (3.8-4.8); Alpha 1 Globulin 0.3 g/dL (0.2-0.3); Alpha 2 Globulin 0.7 g/dL (0.5-0.9); Beta-1-Globulin 0.4 g/dL (0.4-0.6); Beta-2-Globulin 0.4 g/dL (0.2-0.5); Gamma Globulin 0.7 g/dL (0.8-1.7); Monoclonal Protein Band 1 DNR g/dL (NONE DETECTED); Monoclonal Protein Band 2 DNR g/dL (NONE DETECTED); Monoclonal Protein Band 3 DNR g/dL (NONE DETECTED); Total Protein 4.8 g/dL (6.1-8.1)
[2024-08-25 12:17] LABS: Kappa Light Chain, Free, Urine 126.67 mg/L (<=32.90); Kappa/Lambda, Free Ratio, Ur 3.08 (<=8.69); Lambda Light Chain, Free, Ur 41.13 mg/L (<=3.79)
== END 2024-08-22 15:07 | disposition home or self-care (01) | DRG 683 ==
LOC: ED 23:13 → INTOOBSV 08-21 03:52 → EDINP 08-21 03:52 → SUATTDRO 08-21 03:52 → 2N 08-21 13:01